=== PATIENT | male | born 1985 | race Caucasian/White ===

== ENCOUNTER 2016-12-04 10:57 | Emergency (ER) | payer BC ==
[~2016-12-04] VITALS: Ht 182.9 cm; Wt 108.9 kg
[~2016-12-04 10:57] MED LIST: AMOXICILLIN500 M2 PO
--- NOTE | 2016-12-04 11:07 | Emergency Room Report ---
History of Present Illness Time Seen by 1100 Presenting Problem in Triage Pt arrived:Walked Presenting Problem:LEFT SIDED PAIN THAT STARTED ON SUNDAY NIGHT, VOMITED WITH THE PAIN. BRIGHT GREEN STOOL. Onset of symptoms date/time:/ or onset unknown for:MEDICAL HX UNKNOWN Treatment Prior to Arrival: MEDICATION COORDINATOR Provided by: Sepsis Risk Assessment: Temp: 97.8 B/P: MAP: Pulse: 98 Resp: 20 Recent fever? N Clinical Suspician of Infection? N Mental Status: 1 - Regular (Normal Baseline) Sepsis Risk:Possible Sepsis Risk Have you (or family members/close friends) recently traveled outside the [place]? N If Yes, where/when: Have you had exposure to infectious disease within the past month? TB? Other? Specify: Source patient, RN notes reviewed, family, old records Exam Limitations no limitations Comment 3 day hx of lt sided pain with nausea and some change in bowels as noted above Cardiac Chest Pain Chest pain indicative of cardiac No Timing/Duration this evening Severity moderate ALLERGIES Coded Allergies: No Known Allergies (04/03/15) Home Medications Reported Medications No Known Home Medications History Medical History General CAD? No Angina: No ID: No Hypertension? No Hyperlipidemia? No CHF? No DVT? No PE? No COPD? No Asthma? No Anemia? No GERD? No Gastric ulcers? No GI Bleed? No Hernia? No Thyroid Problems? No Hypothyroidism? No CVA? No Seizures? No Diabetes? No Renal Insuffiency? No End Stage Renal Disease? No UTI? No Stones? No BPH? No GB Disease: No Nephritic Syndrome? No Asplenia? No Hepatitis? No Sickle Cell Disease? No Arthritis? No Migraines? No Cataracts? No Glaucoma? No MRSA? No HIV? No TB? No Anxiety? No Depression? No Cancer? No More? No Immunization Hx DT/Tetanus 1-4 Years Ago Surgical Hx Previous Surgery?N Social History Smoking Hx Smoker: Current Every Day Smoker Tobacco: Yes Type Cigarettes Packs/day < 1 Pack Alcohol Alcohol: No Drugs none Review of Systems All Other Systems Reviewed and Negative Constitutional denies fever Eyes denies drainage ENT denies: ear discharge, epistaxis, throat pain. Respiratory denies cough, denies shortness of breath, denies wheezing Cardiovascular denies chest pain, denies palpitations, denies syncope Gastrointestinal abdominal pain, denies constipation, nausea, vomiting Genitourinary see HPI. denies: dysuria, frequency, hesitancy, hematuria. Musculoskeletal denies back pain, denies joint pain, denies neck pain Skin denies rash Psychiatric/Neurological denies headache, denies seizure Physical Exam Vital Signs Vital Signs Date Time Temp Pulse Resp B/P Pulse O2 O2 Flow FiO2 Ox Delivery Rate 12/04 1319 64 18 113/66 100 12/04 1233 18 12/04 1157 22 12/04 1150 78 20 166/73 100 12/04 1124 20 12/04 1100 97.8 98 20 160/93 100 - WBC >12,000 or <4,000 or 10% bands? 2 or more SIRS Criteria Met? B/P:166/ MAP:115 Creatinine >2.0? UA output<0.5ml/kg/hr for 2 hrs? Platelet count >100,000? Lactate >2.0mmol/1? INR >1.2 or PTT > than 60 sec? Evidence of Organ Dysfunction? Provider documented clinical suspician of infection? N Sepsis Criteria Count: 0 Sepsis Risk: Possible Sepsis Risk General Appearance no apparent distress Eye Exam - bilateral eye PERRL, bilateral eye EOMI Ear, Nose, Throat normal ENT inspection Neck supple Respiratory Status No: respiratory distress. Cardiovascular regular rate/rhythm Peripheral Pulses Pulses normal Yes Gastrointestinal soft, no organomegaly, no pulsatile mass, no guarding, no rebound Extremities normal inspection Strength 4 Upper Ext (L), 4 Upper Ext (R), 4 Lower Ext (L), 4 Lower Ext (R) Neurologic alert, family psychologist II-XII nml as tested, no motor/sensory deficits Reflexes Reflexes normal No Mental status normal mood/affect Skin no rash cons.w/shingles Medical Decision Making LABS/Meds/Orders Pt receiving controlled substance in ED? No Results/Orders Laboratory Tests 12/04/16 1305: Urine Color YELLOW, Urine Appearance SL CLOUDY, Urine pH 6.0, Ur Specific [place] 1.025, Urine Protein 1+ H, Urine Ketones NEGATIVE, Urine Blood 3+ H, Urine Nitrate NEGATIVE, Urine Bilirubin NEGATIVE, Urine Urobilinogen 1.0, Ur Leukocyte Esterase NEGATIVE, Urine Glucose NEGATIVE 12/04/16 1151: Lactic Acid 2.3 H 12/04/16 1110: Sodium 142, Potassium 3.7, Chloride 105, Carbon Dioxide 27, BUN 13, Creatinine 1.3, Estimated Creat Clear 127, Estimated GFR (MDRD) 64, Glucose 112 H, Calcium 9.0, Total Bilirubin 0.5, AST 18, ALT 38, Alkaline Phosphatase 69, Total Protein 7.9, Albumin 4.4, Globulin 3.5 H, Albumin/Globulin Ratio 1.3, Amylase 38, Lipase 96, WBC 19.3 H, RBC 5.39, Hgb 16.0, Hct 46.2, MCV 85.8, RDW 13.0, Plt Count 309, MPV 7.9, Gran % 90.3 H, Gran # 17.4 H, Total Counted 100, Lymphocytes % 5.6 L, Monocytes % 3.6, Eosinophils % 0.2, Basophils % 0.3, Neutrophils 82 H, Band Neutrophils 3, Lymphocytes (Manual) 9 L, Lymphocytes # 1.1, Monocytes (Manual) 5, Monocytes # 0.7, Eosinophils # 0.1, Basophils # 0.1, Metamyelocytes 1, Platelet Estimate NORMAL, PUBS MCHC 34.7, ESR 6, MCH 29.7 Current Medication Orders Sig/Carol Start time Last Medication Dose Route Stop Time Status Admin Tamsulosin HCl 0 .STK-MED ONE 12/04 1232 DC PO Hydromorphone HCl 0 .STK-MED ONE 12/04 1231 DC .ROUTE Hydromorphone HCl 1 MG ONCE ONE 12/04 1230 DC 12/04 IV 12/04 1231 1233 Tamsulosin HCl 0.4 MG ONCE ONE 12/04 1230 DC 12/04 PO 12/04 1231 1233 Ketorolac 30 MG ONCE ONE 12/04 1200 DC 12/04 Tromethamine IV 12/04 1201 1157 Ketorolac 0 .STK-MED ONE 12/04 1156 DC Tromethamine .ROUTE Morphine Sulfate 4 MG ONCE ONE 12/04 1130 DC 12/04 IV 12/04 1131 1124 Ondansetron HCl 4 MG ONCE ONE 12/04 1130 DC 12/04 IV 12/04 1131 1124 Ondansetron HCl 0 .STK-MED ONE 12/04 1123 DC .ROUTE Morphine Sulfate 0 .STK-MED ONE 12/04 1122 DC .ROUTE Sodium Chloride 10 ML PRN PRN 12/04 1115 AC IV 12/05 1104 Sodium Chloride 1,000 ML .Q1H1M 12/04 1115 DC 12/04 IV 12/04 1215 1110 Sodium Chloride 10 ML PRN PRN 12/04 1115 AC IV 12/05 1105 Sodium Chloride 1,000 ML .STK-MED ONE 12/04 1108 DC IV Orders Procedure Date/time Status DIET-NOTHING BY MOUTH 12/04 D Active LACTIC ACID FOLLOW UP 12/04 1214 Active DIFFERENTIAL-WBC 12/[address] SCAN REQ 12/04 1105 Complete IV SALINE LOCK 12/04 1105 Active URINALYSIS/COMPLETE 12/04 1105 Complete LIPASE 12/04 1105 Complete LACTIC ACID 12/04 1105 Complete SED RATE 12/04 1105 Complete DIARRHEA PANEL, PCR 12/04 1105 Active C-REACTIVE PROTEIN 12/04 1105 Complete COMPLETE METABOLIC PANEL 12/04 1105 Complete CBC WITH AUTO DIFF 12/04 1105 Complete AMYLASE 12/04 1105 Complete XRAY/CT/US XRAY/CT/US CT abdomen, pelvis CT interpretation by discussed w/radiologist Time results known: 1315 CT Results abnormal (kidney stone) Departure Departure Time of Disposition 1315 Disposition DC Home or Self Care(routine) Clinical Impression Primary Impression: Renal colic on left side Secondary Impressions: Cholelithiasis Qualifiers: Cholelithiasis location: gallbladder Cholecystitis presence: without cholecystitis Biliary obstruction: without biliary obstruction Qualified Code: K80.20 - Calculus of gallbladder without cholecystitis without obstruction Condition STABLE Referrals Aníbal Arellano MD Patient Instructions DI for Kidney Stones Additional Instructions fluids and see pcp and urology for follow up Discharge Counseling Counseled pt/family regarding diagnosis, test results, medications/RX, follow up needs Prescriptions Current Visit Scripts TAMSULOSIN HCL (Flomax 0.4MG) 0.4 MG PO QHS #30 CAP HYDROCODONE/ACETAMINOPHEN ([place] 5-325 Tablet) 1 TAB PO Q6HP PRN pain #10 TAB ED Critical Care Critical Care No at 1074
[2016-12-04 11:22] LABS: LYMPH # 1.1 K/mm3 (0.7-4.5); LYMPH % 5.6 % (10-50)
[2016-12-04 11:45] LABS: BUN 13 mg/dL (7-18); GFR (ESTIMATED) 64 ML/MIN (>60)
[2016-12-04 11:53] LABS: NEUTROPHILS 82 % (42-76)
--- NOTE | 2016-12-04 12:20 | RADIOLOGY REPORT PS360 ---
CT ABD PELVIS W/O CONTRAST CLINICAL INDICATION: Left-sided abdominal pain ABD PAIN ORDERING PHYSICIAN: Yves Leavitt MD PATIENT AGE: 31 years COMPARISON: None TECHNIQUE: Axial images obtained with sagittal and coronal reformats. PROCEDURE: Oral Contrast: None IV Contrast: None . FINDINGS: Lung bases are clear. Are subtle area decreased attenuation involving right hepatic lobe inferiorly at 8 mm nonspecific. There is cholelithiasis. No biliary dilatation. The spleen, pancreas, and adrenal glands have an unremarkable appearance. There is a 5 mm left distal ureteral stone causing mild left-sided obstructive uropathy. Mild nonspecific stranding of the perinephric and periureteral fat. No intestinal obstruction or free air. Tiny umbilical hernia containing fat is noted. The appendix is unremarkable. No evidence of diverticulitis. No acute bony anomalies. IMPRESSION: 1. 5 mm left distal ureteral calculus with mild obstructive uropathy. This is approximately 2 cm proximal to the ureterovesical junction. 2. Other nonacute findings as described above
[2016-12-04 13:13] LABS: URINE BLOOD 3+ (NEG)
[2016-12-04 13:21] LABS: URINE BILIRUBIN - DIPSTICK NEGATIVE (NEG)
[2016-12-04] MEDS ORDERED: NORCO 325 MG-51 TAB PO (13:28)
[2016-12-04] MEDS ORDERED: FLOMAX 0.4MG C0.4 MG PO (13:28)
[2016-12-04 13:29] VITALS: BP 113/66
== END 2016-12-04 13:33 | disposition home or self-care (01) ==
LOC: ER 10:57
PROVIDERS: Emergency Medicine
DX: K80.20 Calculus of gallbladder without cholecystitis without obstruction (principal); Z72.0 Tobacco use
CPT/HCPCS: J2405